=== PATIENT | male | born 1955 | race Caucasian/White ===

== ENCOUNTER 2016-09-12 12:59 | Emergency (ER) | payer OTHER ==
[~2016-09-12] VITALS: Ht 154.9 cm; Wt 83.9 kg
[~2016-09-12 12:59] MED LIST: DAYPRO600 M1 PO
[2016-09-12] MEDS ORDERED: LIPITOR10 MG PO (13:08)
[2016-09-12] MEDS ORDERED: KEFLEX500 M1 PO (15:01)
[2016-09-12] MEDS ORDERED: NAPROSYN500 MG PO (15:01)
== END 2016-09-12 16:56 | disposition home or self-care (01) ==
LOC: ED 12:59
DX: S01.21XA Laceration without foreign body of nose, initial encounter (principal); R03.0 Elevated blood-pressure reading, without diagnosis of hypertension; F17.200 Nicotine dependence, unspecified, uncomplicated; Z79.899 Other long term (current) drug therapy; V09.9XXA Pedestrian injured in unspecified transport accident, initial encounter; Y93.89 Activity, other specified; Y92.89 Other specified places as the place of occurrence of the external cause; Y99.9 Unspecified external cause status

== ENCOUNTER 2022-06-06 16:57 | Emergency (ER) | payer OTHER ==
[~2022-06-06] VITALS: Ht 177.8 cm; Wt 83.5 kg
[~2022-06-06 16:57] MED LIST changes: +KEFLEX500 M1 PO; +LIPITOR10 MG PO; +NAPROSYN500 MG PO
[2022-06-06 18:46] LABS: BILIRUBIN Negative (Negative); BLOOD Negative (Negative); CLARITY Clear (Clear); COLOR Yellow (Yellow); GLUCOSE Negative (Negative); KETONE Negative (Negative); LEUKO ESTERASE Trace (Negative); NITRITE Negative (Negative); PH 5.5 (4.5-8.0); SPECIFIC GRAVITY <= 1.005 (1.001-1.030); UROBILINOGEN 0.2 E.U./dl (0.0-1.0)
[2022-06-06 18:47] LABS: BASO # 0.1 10*3/uL (0.0-0.1); BASO % 0.8 % (0.0-1.0); EOS # 0.4 10*3/uL (0.0-0.4); EOS % 3.5 % (1.0-4.0); HEMATOCRIT 43.6 % (42.0-52.0); LYMPH # 2.8 10*3/uL (1.3-4.4); LYMPH % 28.2 % (27.0-41.0); MEAN CELL VOLUME 97.5 fl (80.0-94.0); MEAN CORPUSCULAR HGB 34.9 pg (27.0-31.0); MEAN CORPUSCULAR HGB CONC 35.8 g/dl (33.0-37.0); MEAN PLATELET VOLUME 10.5 fl (9.6-12.3); MONO # 0.8 10*3/uL (0.1-1.0); MONO % 8.4 % (3.0-9.0); NEUT # 5.9 10*3/uL (2.3-7.9); NEUT % 58.9 % (47.0-73.0); PLATELET COUNT AUTOMATED 210 10*3/uL (130-400); RED BLOOD COUNT 4.47 10*6/uL (4.50-5.90); RED CELL DISTRI WIDTH 11.5 % (0-14.5)
[2022-06-06 18:58] LABS: BACTERIA TRACE; EPITHELIAL CELLS 0-2; RBC 0-2 rbc/hpf (0-2); WBC 0-2 wbc/hpf (0-5)
[2022-06-06 18:58] LABS: ACT PARTIAL THROMBO TIME 30.5 SECONDS (20.0-32.1)
[2022-06-06 19:03] LABS: ALKALINE PHOSPHATASE 129 U/L (46-116); BUN 7 mg/dl (9-23); CHLORIDE 99 mmol/L (98-107); LIPASE 32 U/L (12-53); POTASSIUM 4.3 mmol/L (3.4-5.1); SGPT/ALT 46 U/L (10-49); TOTAL PROTEIN 7.6 gm/dL (6.0-8.0)
== END 2022-06-06 20:03 | disposition home or self-care (01) ==
LOC: ED 16:57
PROVIDERS: Emergency Medicine
DX: E87.1 Hypo-osmolality and hyponatremia (principal); Z79.899 Other long term (current) drug therapy

== ENCOUNTER → 2022-11-05 | Day surgery (SDC) | payer MEDICARE ==
[~2022-11-05] VITALS: Ht 177.8 cm; Wt 86.2 kg
[~2022-11-05] MED LIST changes: +B12 ACTIVE1000 MCG PO; +DAILY VALUE1 EACH PO; +METFORMIN XR500 MG PO; +VITAMIN D350 MCG PO; +ZESTRIL10 MG PO
[2022-11-05 09:34] VITALS: BP 117/58
[2022-11-05 11:16] VITALS: BP 131/73
[2022-11-05 11:31] VITALS: BP 124/68
[2022-11-05 11:46] VITALS: BP 134/70
== END | disposition home or self-care (01) ==
LOC: SDC 10-31 11:00
PROVIDERS: ATTEND Ophthalmology
DX: E11.36 Type 2 diabetes mellitus with diabetic cataract (principal); H25.811 Combined forms of age-related cataract, right eye; I10 Essential (primary) hypertension; E78.00 Pure hypercholesterolemia, unspecified; F17.210 Nicotine dependence, cigarettes, uncomplicated; Z88.5 Allergy status to narcotic agent; Z79.899 Other long term (current) drug therapy

== ENCOUNTER → 2022-12-03 | Day surgery (SDC) | payer MEDICARE ==
[~2022-12-03] VITALS: Ht 177.8 cm; Wt 86.2 kg
[2022-12-03 08:05] VITALS: BP 125/65
[2022-12-03 09:10] VITALS: BP 127/67
[2022-12-03 09:32] VITALS: BP 135/69
[2022-12-03 09:38] VITALS: BP 143/72
== END ==
LOC: SDC 11-28 12:30
PROVIDERS: ATTEND Ophthalmology
DX: E11.36 Type 2 diabetes mellitus with diabetic cataract (principal); H25.812 Combined forms of age-related cataract, left eye; I10 Essential (primary) hypertension; E78.00 Pure hypercholesterolemia, unspecified; F17.210 Nicotine dependence, cigarettes, uncomplicated; Z98.890 Other specified postprocedural states

== ENCOUNTER 2024-05-16 16:11 | Emergency (ER) | payer OTHER ==
[~2024-05-16] VITALS: Ht 177.8 cm; Wt 83.9 kg
[2024-05-16] MEDS ORDERED: TRANEXAMIC ACID IN NACL,ISO-OS 100 ML IV ONE (18:10)
[2024-05-16] MEDS ORDERED: Bacitracin Zinc 14 GM TUBE T ONE (21:55)
== END 2024-05-16 21:57 | disposition home or self-care (01) ==
LOC: ED 16:11
DX: S01.01XA Laceration without foreign body of scalp, initial encounter (principal); I10 Essential (primary) hypertension; E11.9 Type 2 diabetes mellitus without complications; E78.00 Pure hypercholesterolemia, unspecified; F17.200 Nicotine dependence, unspecified, uncomplicated; Z79.4 Long term (current) use of insulin; Z98.890 Other specified postprocedural states; W20.8XXA Other cause of strike by thrown, projected or falling object, initial encounter; Y93.E9 Activity, other interior property and clothing maintenance; Y92.89 Other specified places as the place of occurrence of the external cause; Y99.8 Other external cause status